=== PATIENT | female | born 1945 | race Caucasian/White ===

== ENCOUNTER 2016-11-25 12:14 | Outpatient (CLI) | payer MEDICARE, BC ==
[2016-03-24 13:08] VITALS: BMI 24.3
[~2016-11-25 12:14] MED LIST: CALTRATE 600 M600 M1 PO; EFFEXOR37.5 MG PO; ESTRACE1 MG PO; FISH OIL 1,2001 CAP PO; L-ARGININE500 MG PO; LUTEIN20 MG PO; METAMUCIL FIB1 WAFER PO; NORVASC5 MG PO; PRAVACHOL40 MG PO; VITAMIN D31000 UNIT PO; ZESTORETIC 20-1 EACH PO
== END 2016-11-25 16:38 ==
LOC: D.MAMMO 12:14
DX: Z12.31 Encounter for screening mammogram for malignant neoplasm of breast (principal)

== ENCOUNTER 2017-05-12 16:47 | Inpatient (IN) | payer MEDICARE, BC ==
[~2017-05-12] VITALS: Ht 172.7 cm; Wt 74.5 kg
--- NOTE | 2017-05-12 16:45 | NUR ---
PT DIRECT ADMIT TO FLOOR. ASSESSMENT COMPLETE AT THIS TIME. AT BEDSIDE.
[2017-05-12 17:10] VITALS: BP 151/86; Ht 172.7 cm; Wt 74.5 kg
[2017-05-12 17:50] LABS: BASOPHILS 0.5 % (0-2); EOSINOPHILS 1.9 % (0-7); HEMATOCRIT 40.7 % (36.0-48.0); HEMOGLOBIN 13.6 g/dL (12-16); IMMATURE GRANULOCYTES 0.2 % (0-5); LYMPHOCYTES 18.2 % (15-50); MCH 32.3 pg (26.0-34.0); MCHC 33.4 g/dL (31.0-37.0); MCV 96.7 fL (80.0-100.0); MEAN PLATELET VOLUME 9.2 fL (7.4-10.4); NEUTROPHILS 73.2 % (40-80); PLATELET COUNT 198 10x3/uL (130-400); RBC 4.21 10x6/uL (4.00-5.40); RDW 13.2 % (11.5-14.5); WBC 8.3 10x3/uL (4.8-10.8)
[2017-05-12 17:56] LABS: INR 0.98 (0.85-1.17); PROTIME 12.6 SECONDS (11.6-15.0)
[2017-05-12 18:04] LABS: ALBUMIN 3.9 g/dL (3.4-5.0); ALKALINE PHOSPHATASE 93 U/L (46-116); ALT (SGPT) 40 U/L (10-68); BILIRUBIN - TOTAL 0.42 mg/dL (0.2-1.3); CALC OSMOLALITY 279 mosm/kg (275-300); CALCIUM 9.5 mg/dL (8.5-10.1); CARBON DIOXIDE 27.9 mmol/L (21.0-32.0); CHLORIDE - SERUM 104 mmol/L (98-107); CREATININE - SERUM 0.7 mg/dL (0.6-1.3); GLUCOSE 86 mg/dL (74-106); POTASSIUM - SERUM 4.2 mmol/L (3.5-5.1); PROTEIN - SERUM 7.2 g/dL (6.4-8.2); SODIUM 140 mmol/L (136-145); UREA NITROGEN 18 mg/dL (7-18); eGFR NON AFRICAN AMERICAN 87 mL/min (90-120)
[2017-05-12 20:00] VITALS: BP 142/74
[2017-05-12 21:54] LABS: APPEARANCE CLEAR (CLEAR); BILIRUBIN NEGATIVE (NEGATIVE); COLOR STRAW (YELLOW); GLUCOSE NEGATIVE (NEGATIVE); KETONE NEGATIVE (NEGATIVE); NITRITE NEGATIVE (NEGATIVE); PROTEIN NEGATIVE (NEGATIVE); UROBILINOGEN NORMAL (NORMAL)
[2017-05-12 21:57] LABS: WHITE CELLS - URINE 0-5 /hpf (0-5)
[2017-05-12 21:58] LABS: BACTERIA FEW /hpf (NONE SEEN); EPITHELIAL CELLS OCC /hpf (0-5)
[2017-05-13] VITALS: BP 140/65
[2017-05-13 04:00] VITALS: BP 125/65
[2017-05-13 04:09] LABS: BASOPHILS 0.3 % (0-2); EOSINOPHILS 2.9 % (0-7); HEMATOCRIT 38.2 % (36.0-48.0); HEMOGLOBIN 12.5 g/dL (12-16); IMMATURE GRANULOCYTES 0.3 % (0-5); LYMPHOCYTES 27.1 % (15-50); MCH 31.9 pg (26.0-34.0); MCHC 32.7 g/dL (31.0-37.0); MCV 97.4 fL (80.0-100.0); MEAN PLATELET VOLUME 10.1 fL (7.4-10.4); MONOCYTES 5.9 % (2-11); NEUTROPHILS 63.5 % (40-80); PLATELET COUNT 186 10x3/uL (130-400); RBC 3.92 10x6/uL (4.00-5.40); RDW 13.2 % (11.5-14.5); WBC 6.3 10x3/uL (4.8-10.8)
[2017-05-13 04:24] LABS: CALC OSMOLALITY 282 mosm/kg (275-300); CALCIUM 8.6 mg/dL (8.5-10.1); CARBON DIOXIDE 27.2 mmol/L (21.0-32.0); CHLORIDE - SERUM 107 mmol/L (98-107); CREATININE - SERUM 0.8 mg/dL (0.6-1.3); GLUCOSE 119 mg/dL (74-106); POTASSIUM - SERUM 3.8 mmol/L (3.5-5.1); SODIUM 141 mmol/L (136-145); UREA NITROGEN 15 mg/dL (7-18); eGFR NON AFRICAN AMERICAN 75 mL/min (90-120)
--- NOTE | 2017-05-13 07:18 | NUR ---
REPORT RECEIVED FROM CERTIFIED HEARING INSTRUMENT DISPENSER NURSE. CALL LIGHT IN REACH.
[2017-05-13 08:55] VITALS: BP 116/60
--- NOTE | 2017-05-13 08:58 | NUR ---
ASSESSMENT COMPLETED. PREOP MEDS ADMINISTERED. CONSENT FORMS SIGNED AND WITNESSED. CALL LIGHT IN REACH. WILL CONTINUE WITH PLAN OF CARE.
--- NOTE | 2017-05-13 10:58 | NUR ---
TO OR VIA BED.
--- NOTE | 2017-05-13 12:30 | NUR ---
STILL IN OR AT THIS TIME.
--- NOTE | 2017-05-13 14:50 | NUR ---
NOT BACK FROM SURGERY AT THIS TIME.
[2017-05-13 16:17] VITALS: BP 109/83
--- NOTE | 2017-05-13 16:17 | NUR ---
RECEIVED BACK TO ROOM FROM RECOVERY ROOM. O2 @ 2L PER NC. BED ALARM ON. SCD TO RLE AND AMARI HOSE TO LLE. IN ROOM. CALL LIGHT IN REACH. WILL CONTINUE WITH PLAN OF CARE.
--- NOTE | 2017-05-13 18:41 | NUR ---
NO CHANGES IN INITIAL ASSESSMENT. SCD TO RLE. AMARI HOSE TO LLE. BED ALARM ON. AT BEDSIDE. CALL LIGHT IN REACH. WILL CONTINUE WITH PLAN OF CARE.
--- NOTE | 2017-05-13 19:15 | NUR ---
RECEIVED CARE FROM DAY NURSE. LYING IN LOW FOWLERS POSITION. REPORTS NO NEEDS AT THIS TIME. CALL LIGHT AT SIDE. IV INFUSING TO PATENT LEFT FA PER ORDER.
--- NOTE | 2017-05-13 19:15 | NUR ---
RECEIVED CARE FROM DAY NURSE. PT LYING IN BED IN LOW FOWLERS POSITION. EYES CLOSED. RESP EVEN AND UNLABORED. COMPANY AT SIDE. IV INFUSING TO LEFT FA PATENT AND INFUSING PER ORDER.
[2017-05-13 20:00] VITALS: BP 102/63
--- NOTE | 2017-05-13 23:31 | NUR ---
PATIENT IS AWAKE, ALERT AND ORIENTED. FABIOLA GOMEZ IN ROOM TALKING WITH PATIENT. RESPIRATIONS ARE EVEN AND UNLABORED ON ROOM AIR. NO SIGNS OF DISTRESS NOTED. BED IN LOWEST POSITION, CALL LIGHT IN REACH. BED RAILS UP X'S 2.
[2017-05-14] VITALS: BP 109/51
[2017-05-14 04:00] VITALS: BP 125/59
[2017-05-14 04:18] LABS: BASOPHILS 0.2 % (0-2); EOSINOPHILS 0.1 % (0-7); HEMATOCRIT 36.5 % (36.0-48.0); IMMATURE GRANULOCYTES 0.3 % (0-5); LYMPHOCYTES 7.1 % (15-50); MCH 31.9 pg (26.0-34.0); MCHC 32.9 g/dL (31.0-37.0); MCV 97.1 fL (80.0-100.0); MEAN PLATELET VOLUME 10.2 fL (7.4-10.4); MONOCYTES 6.9 % (2-11); NEUTROPHILS 85.4 % (40-80); PLATELET COUNT 201 10x3/uL (130-400); RBC 3.76 10x6/uL (4.00-5.40); RDW 13.6 % (11.5-14.5)
[2017-05-14 04:19] LABS: WBC 11.7 10x3/uL (4.8-10.8)
[2017-05-14 04:43] LABS: ALBUMIN 3.1 g/dL (3.4-5.0); ANION GAP 14.4 mmol/L (8-16); BILIRUBIN - TOTAL 0.6 mg/dL (0.2-1.3); CALCIUM 8.4 mg/dL (8.5-10.1); CARBON DIOXIDE 24.9 mmol/L (21.0-32.0); POTASSIUM - SERUM 4.3 mmol/L (3.5-5.1); PROTEIN - SERUM 5.6 g/dL (6.4-8.2)
[2017-05-14 04:48] LABS: CREATININE - SERUM 1.2 mg/dL (0.6-1.3)
--- NOTE | 2017-05-14 05:26 | NUR ---
SCANT URINE OUTPUT THROUGHOUT SHIFT. IN AND OUT CATH PREFORMED USING STERILE TECHNIQUE. REMOVAL OF 500ML YELLOW CLEAR URINE REMOVED.
--- NOTE | 2017-05-14 07:15 | NUR ---
REPORT RECEIVED FROM CLINICAL DATA ASSOCIATE NURSE. CALL LIGHT IN REACH.
--- NOTE | 2017-05-14 07:47 | OP ---
PATIENT NAME: VICENTA CHOUDHURY MEDICAL RECORD: [id number] :45 LOCATION:D[id number] ADMISSION DATE:05/12/17 SURGEON: ROMEO GALICIA DO DATE OF OPERATION: 05/13/2017 PROCEDURE PERFORMED: Left total hip arthroplasty. PREOPERATIVE DIAGNOSIS: Displaced left femoral neck fracture. POSTOPERATIVE DIAGNOSIS: Displaced left femoral neck fracture. INDICATIONS: Ms. Choudhury is a 71-year-old female that fell a couple of weeks ago and had some left hip pain, was limping, thought she has pulled a muscle. She finally went to the doctor and was having more difficulty weightbearing, had an x-ray, and was seen to have a left femoral neck fracture that had displaced. Upon discovering that she was direct admit to the hospital last night, I was consulted to talk to her. We discussed the options and she decided that a total hip is what we would do and she was informed of the risks and benefits of the procedure and consented for the procedure. SURGEON: Romeo Galicia DO COMPLICATIONS: None. ESTIMATED BLOOD LOSS: 100 mL DESCRIPTION OF PROCEDURE: The patient was given a block in the preoperative area by anesthesia and taken to the operative suite, laid in supine position, given general anesthetic and intubated, given a gram of vancomycin for preoperative antibiotics due to her PENICILLIN ALLERGY. Once this was done, a timeout was performed and everyone was in agreement of correct side, site, and patient. The left hip was prepared. The left foot was wrapped and AMARI hose stocking was placed and Webril and then Coban over the foot and was placed Unna boot. An anchor was placed on top of the foot and the boot was cinched down. Once this was done, Coban was placed on top of the boot to double secure and make sure the foot would not slip. After this, the patient was moved over to the table and then prepped and draped as described in sterile fashion. After the time-out, the incision commenced the anterior approach down to the tensor fascia syeda fascia. This fascia was incised and taken anterior, the muscle belly was taken posteriorly, then dissected down to the rectus muscle. This fascia was excised and then the Mike retractor was then placed in a more vertical position and the tensor fascia syeda was taken laterally and the rectus medially. The careful dissection was made down to the ascending branch of lateral femoral circumflex artery. This was tied off and coagulated with Aquamantys as well as with the plasma knife and careful dissection was made down to the hip capsule. Capsulotomy was performed and tagged. The femoral neck was then recut for a cut better suited for the total hip arthroplasty. The femoral head and neck were then removed. The Charnley retractor was then place. Once this was done, retractors were placed around the acetabulum. The labrum was taken off anteriorly and posteriorly and the pulvinar was removed and any bleeders were coagulated at that time with Aquamantys. We then began reaming, first medialized, and then we started with the 46 and then up to 50. The 50 implant was put in place at that time. After this was done, the attention was then drawn to the femur. A bone hook was seen, the femur was moved very well and easily, and the leg was brought into more external rotation and extended and OPERATIVE REPORT [id number] VICENTA CHOUDHURY abducted as the femur presented well in the incision site. A retractor was then used on the medial side, which is the posterior side of the femoral neck as well as over the greater trochanter to expose the canal. A cookie cutter was used to get in the canal and then the canal finder was used to get into the canal. We broached up to a 4 that was then trialed and we trialed to a neutral head and neck with standard offset. This was confirmed under x-ray and seen to be in good position. We then decided to do a collared press fit on the stem with Medacta. This was put in and the dual mobility head was put into place and malleted onto the stem and then the hip was reduced. Once this was done, thorough irrigation was done of all the wound. X-ray was taken and this was seen to be in very good position. There were no fractures seen in the distal femur as we checked. The capsule was then closed with a #2 Ethibond in a single jadatb-ey-mscij stitch and then Cori was put in the wound and then the tensor fascia syeda fascia was closed first with a imdsbt-bb-hgdqg stitch of 0 Vicryl and then running locking stitch of 0 Vicryl over the whole fascia. We then used the rest of the Cori on top of that and the skin was closed with 2-0 Vicryl in inverted interrupted fashion. Prineo Dermabond glue was used on the skin to close the skin. Telfa and Tegaderm were then placed over the wound and the patient was awakened and taken to recovery in stable condition. TRANSINT:[id number] Voice Confirmation ID: [id number] DOCUMENT ID: [id number] ROMEO GALICIA DO at 0747 CC: [id number] DICTATION DATE: 05/13/17 1458 COOPERAGE SHOP SUPERVISOR: 05/13/17 1644 ADM IN [facility] [address] [id number]
--- NOTE | 2017-05-14 08:12 | NUR ---
ASSESSMENT COMPLETED. TORADOL SIVP WITH AM MEDS EXCEPT FOR BP MEDS. SCD APPLIED TO LLE ALSO. BED ALARM ON. FRESH ICE PACK APPLIED TO LLE. CALL LIGHT IN REACH. WILL CONTINUE WITH PLAN OF CARE.
[2017-05-14 09:13] VITALS: BP 130/58
--- NOTE | 2017-05-14 09:30 | NUR ---
TO CHAIR PER PT. SCDs OFF AT THIS TIME. CALL LIGHT IN REACH.
--- NOTE | 2017-05-14 11:12 | NUR ---
SITTING UP IN CHAIR AT BEDSE. REQUESTED TO GO BACK TO BED NOW. DRESSING TO LEFT HIP DRY AND INTACT. PT HERE TO ASSIST TO BED.
--- NOTE | 2017-05-14 11:19 | NUR ---
BACK IN BED PER PT. TOLERATED WELL BUT NOW REQUESTING PAIN MED. OXY IR 5 MG PO. VANC IVPB. ICE PACK REFILLED AND PLACED TO LEFT HIP. SCDs BACK ON. BED ALARM ON. CALL LIGHT IN REACH.
--- NOTE | 2017-05-14 11:46 | NUR ---
REHAB PRESCREENING Rehab referral received. We will continue to follow this patient for progress. Thank you for this referral! Eufemia Bal, WOOD WEB WEAVING MACHINE OPERATOR Rehab Football Pad Repairer
--- NOTE | 2017-05-14 13:06 | NUR ---
LATE ENTRY-1000 CM RECEIVED MD ORDER FROM DR HENDERSON REQUESTING AN ACUTE REHAB CONSULT. CM SPOKE WITH TORREY , THE [facility] [place] [place] REHAB SCREENER FOR THE WEEKEND, TO ADVISE OF ORDER. CM HAD NOTED PATIENT DOES NOT HAVE A PHYSICAL THERAPY OR OT ORDER AT THIS TIME. TORREY WILL FOLLOW. POD #1. PRESENT PT ORDER IS FOR OVERHEAD FRAME AND TRAPEZE. DISCUSSED W/ PRIMARY NURSE.
[2017-05-14 13:16] VITALS: BP 130/56
--- NOTE | 2017-05-14 13:47 | NUR ---
IN BED WITH EYES CLOSED. RESP EVEN AND UNLABORED. CALL LIGHT IN REACH. BED ALARM ON.
--- NOTE | 2017-05-14 14:38 | NUR ---
SPOKE WITH PHYSICAL THERAPIST, MELVIN. HE HAD SPOKEN WITH DR GALICIA THIS AM REGARDING PHYSICAL THERAPY. PATIENT WAS EVALUATED TODAY. WILL CONTINUE WITH THERAPY.
[2017-05-14 15:53] VITALS: BP 103/58
--- NOTE | 2017-05-14 15:59 | NUR ---
INCENTIVE SPIROMETER GIVEN TO PATIENT AND EXPLAINED USE WITH RETURN DEMONSTRATION.
--- NOTE | 2017-05-14 16:20 | NUR ---
VOIDED 50 CC ON BEDPAN. WILL ASSIST TO BSC AFTER DINNER TO SEE IF SHE CAN GO. IF NOT, WILL I&O CATH PATIENT.
--- NOTE | 2017-05-14 18:15 | NUR ---
CM WENT TO VISIT WITH THE PATIENT THIS PM. SHE STATES SHE IS STILL A LITTLE CONFUSED WITH TIME. SHE HAS BEEN OOB TO BATHROOM. IS EXPERIENCING PAIN POST ACTIVITY. HAS HAD PAIN MANGEMENT ISSUES THIS POD #1. WAS SEEN BY PHYSICAL THERAPY EARLIER TODAY. THEN OOB TO COMMODE THIS PM. SHE IS NOT CERTAIN SHE WANTS ACUTE REHAB. CM WILL REVISIT IN THE AM TO ASSESS AND DISCUSS DISCHARGE PLANS. WILL ALSO REVIEW IMM. MIRNA SPOKE WITH THE PRIMARY NURSE, ROXY, REGARDING PATIENT'S COMPLAINT OF PAIN.
--- NOTE | 2017-05-14 18:16 | NUR ---
TORADOL IVP PER C/O PAIN OF 4 AFTER GETTING UP TO BSC. ONLY VOIDED 50 CC ON BSC. I&O USING STERILE TECHNIQUE PERFORMED WITH 600 CC URINE RETURN. NO OTHER CHANGES IN INITIAL ASSESSMENT. SCDs TO BLE. AMARI HOSE TO LLE. BED ALARM ON. CALL LIGHT IN REACH. WILL CONTINUE WITH PLAN OF CARE.
[2017-05-14 20:56] VITALS: BP 133/49
[2017-05-15] VITALS (7 sets, daily range): BP systolic 114–140; BP diastolic 47–59
[2017-05-15 04:46] LABS: BASOPHILS 0.1 % (0-2); EOSINOPHILS 0.6 % (0-7); HEMATOCRIT 29.4 % (36.0-48.0); HEMOGLOBIN 9.9 g/dL (12-16); IMMATURE GRANULOCYTES 0.1 % (0-5); MCHC 33.7 g/dL (31.0-37.0); MEAN PLATELET VOLUME 10.3 fL (7.4-10.4); MONOCYTES 8.9 % (2-11); NEUTROPHILS 78.3 % (40-80); RBC 3.09 10x6/uL (4.00-5.40); RDW 13.5 % (11.5-14.5)
[2017-05-15 04:47] LABS: MCV 95.1 fL (80.0-100.0); PLATELET COUNT 155 10x3/uL (130-400); WBC 7.7 10x3/uL (4.8-10.8)
--- NOTE | 2017-05-15 04:52 | NUR ---
ASSESSED, PT IS ASLEEP WITH EASY RESPIRATIONS AND NO DISTRESS NOTED. THE BED IS LOW, RAILS UP X'S 2 WITH THE CALL LIGHT AT HAND/
[2017-05-15 05:19] LABS: ALBUMIN 2.5 g/dL (3.4-5.0); BILIRUBIN - TOTAL 0.6 mg/dL (0.2-1.3); CALCIUM 8.3 mg/dL (8.5-10.1); CARBON DIOXIDE 24.8 mmol/L (21.0-32.0); CREATININE - SERUM 0.9 mg/dL (0.6-1.3); PROTEIN - SERUM 5.3 g/dL (6.4-8.2)
[2017-05-15 05:22] LABS: ANION GAP 11.6 mmol/L (8-16); POTASSIUM - SERUM 3.4 mmol/L (3.5-5.1)
--- NOTE | 2017-05-15 07:26 | NUR ---
REPORT RECEIVED FROM DRAWBENCH OPERATOR HELPER NURSE. CALL LIGHT IN REACH.
--- NOTE | 2017-05-15 09:39 | NUR ---
ASSESSMENT COMPLETED. AM MEDS ADMINISTERED. SCDs TO BLE. AMARI HOSE TO LLE. BED ALARM ON. CALL LIGHT IN REACH. WILL CONTINUE WITH PLAN OF CARE.
--- NOTE | 2017-05-15 11:20 | NUR ---
ASSISTED TO BSC. HAD LARGE BM X1. BACK TO BED. ALARM ON.
--- NOTE | 2017-05-15 13:20 | NUR ---
PT AMBULATING PATIENT FOR THE 2ND TIME TODAY. TOLERATING WELL. ALSO BY SIDE.
--- NOTE | 2017-05-15 13:45 | NUR ---
OXY IR PO PER F/O PAIN OF 4. CALL LIGHT IN REACH.
--- NOTE | 2017-05-15 14:05 | NUR ---
DR. GALICIA IN ROOM TO SEE PATIENT AGAIN.
--- NOTE | 2017-05-15 14:06 | NUR ---
Is the patient Alert and Oriented? Yes 0 * How many steps to enter\exit or inside your home? none 0 * PCP DR BILLY 0 * Pharmacy [facility] IN PROCESS OF TRYING TO TRANSFER TO [facility] 0 * Preadmission Environment Home with Family 0 * ADLs Independent 0 * Equipment None 0 * Other Equipment HAS NO DME 0 * List name and contact numbers for known caregivers / representatives who currently or will assist patient after discharge: LYNSEY JUARES- [facility]- [phone] 0 * Community resources currently utilized None 0 * Please name any agencies selected above. N/A 0 * Additional services required to return to the preadmission environment? Yes 0 * Can the patient safely return to the preadmission environment? Yes 0 * Has this patient been hospitalized within the prior 30 days at any hospital? No 0
--- NOTE | 2017-05-15 16:15 | NUR ---
NO NEEDS VOICED AT THIS TIME. CALL LIGHT IN REACH.
--- NOTE | 2017-05-15 18:32 | NUR ---
NO CHANGES IN INITIAL ASSESSMENT. SCDs TO BLE. AMARI HOSE TO LLE. BED ALARM ON. CALL LIGHT IN REACH. WILL CONTINUE WITH PLAN OF CARE.
--- NOTE | 2017-05-15 19:10 | NUR ---
PT IN BED WITH AT BEDSIDE. NO CONCERNS MADE KNOWN. PT IN PLEASANT MOOD. NOTES DISCOMFORT TO LEFT LOWER EXTREMITY 3/10 AND FEELING INCREASING AND REQUEST PAIN MEDICATION WITH EVENING MEDICATIONS. CALL LIGHT IN REACH. WILL CONTINUE TO OBSERVE.
--- NOTE | 2017-05-15 21:48 | NUR ---
PT IN BED WITH EYES OPEN WATCHING TV. NO CONCERNS OR COMPLAINTS AT THIS TIME. WILL CONTINUE TO OBSERVE. CALL LIGHT IN REACH.
--- NOTE | 2017-05-16 00:29 | NUR ---
PT IN BED WITH EYES CLOSED AND CHEST RISING. NO S/S OF DISTRESS NOTED AT THIS TIME. CALL LIGHT IN REACH.
--- NOTE | 2017-05-16 00:30 | NUR ---
PT IN BED WITH EYES CLOSED AND CHEST RISING. NO S/S OF DISTRESS NOTED. CALL LIGHT IN REACH. WILL CONTINUE TO OBSERVE.
--- NOTE | 2017-05-16 02:48 | NUR ---
PT IN BED WITH EYES CLOSED AND CHEST RISING. NO S/S OF DISTRESS. NO CONCERNS AT THIS TIME. CALL LIGHT IN REACH. WILL CONTINUE TO OBSERVE.
[2017-05-16 03:23] LABS: BASOPHILS 0.1 % (0-2); EOSINOPHILS 0.9 % (0-7); HEMATOCRIT 28.5 % (36.0-48.0); HEMOGLOBIN 9.5 g/dL (12-16); IMMATURE GRANULOCYTES 0.1 % (0-5); LYMPHOCYTES 14.5 % (15-50); MCH 31.9 pg (26.0-34.0); MCHC 33.3 g/dL (31.0-37.0); MCV 95.6 fL (80.0-100.0); MEAN PLATELET VOLUME 10.5 fL (7.4-10.4); MONOCYTES 9.5 % (2-11); NEUTROPHILS 74.9 % (40-80); PLATELET COUNT 169 10x3/uL (130-400); RBC 2.98 10x6/uL (4.00-5.40); RDW 13.5 % (11.5-14.5); WBC 7.7 10x3/uL (4.8-10.8)
[2017-05-16 03:49] LABS: ALBUMIN 2.3 g/dL (3.4-5.0); ALKALINE PHOSPHATASE 59 U/L (46-116); BILIRUBIN - TOTAL 0.47 mg/dL (0.2-1.3); CALCIUM 8.4 mg/dL (8.5-10.1); CARBON DIOXIDE 25.4 mmol/L (21.0-32.0); CHLORIDE - SERUM 107 mmol/L (98-107); GLUCOSE 118 mg/dL (74-106); PROTEIN - SERUM 5.4 g/dL (6.4-8.2); SODIUM 140 mmol/L (136-145)
[2017-05-16 03:51] LABS: ALT (SGPT) 21 U/L (10-68); CALC OSMOLALITY 277 mosm/kg (275-300); CREATININE - SERUM 0.6 mg/dL (0.6-1.3); UREA NITROGEN 8 mg/dL (7-18); eGFR NON AFRICAN AMERICAN > 90 mL/min (90-120)
[2017-05-16 03:59] VITALS: BP 104/49
--- NOTE | 2017-05-16 07:19 | NUR ---
REPORT RECEIVED FROM ANESTHETIC ASSISTANT NURSE. CALL LIGHT IN REACH.
--- NOTE | 2017-05-16 07:22 | NUR ---
REPORT RECEIVED FROM BUILDING CONSTRUCTION CONTRACTOR NURSE. CALL LIGHT IN REACH.
--- NOTE | 2017-05-16 07:40 | NUR ---
ASSESSMENT COMPLETED. OXY IR 5 MG PO WITH AM MEDS ADMINISTERED. AMARI HOSE TO LLE AND SCDs TO BLE. BED ALARM ON. CALL LIGHT IN REACH. WILL CONTINUE WITH PLAN OF CARE.
[2017-05-16] MEDS ORDERED: OXYCODONE HCL5 MG PO (08:07)
[2017-05-16] MEDS ORDERED: ELIQUIS2.5 MG PO (08:07)
[2017-05-16 08:52] VITALS: BP 140/61
--- NOTE | 2017-05-16 08:52 | NUR ---
BP MEDS ADMINISTERED. STATES PAIN IS NOW AT A 0. CALL LIGHT IN REACH. BED ALARM ON.
--- NOTE | 2017-05-16 09:58 | NUR ---
PATIENT DISCHARGING TODAY, OP PT SET UP FOR TueMay AT 11:45 AM. WALKER AND BSC ORDERED FROM [facility] AND WILL BE DELIVERED TO HOSPITAL. CM WILL CONTINUE TO FOLLOW AND ASSIST NEEDED WITH DSICHARGE PLANNING NEEDS.
--- NOTE | 2017-05-16 10:17 | NUR ---
Rehab Note- Spoke to Chidi CM. The patient has progressed well enough to be discharged home to do outpatient therapy. Thank you for this referral! Sylvia Ortega RN Clinical Liaison, [facility]
--- NOTE | 2017-05-16 10:58 | NUR ---
HAS AMBULATED IN HALLWAY WITH PHYSICAL THERAPY. TOLERATED WELL. IN CHAIR AT THIS TIME. CALL LIGHT IN REACH.
[2017-05-16] MEDS ORDERED: POTASSIUM CHLO10 ME1 PO (11:48)
--- NOTE | 2017-05-16 12:12 | NUR ---
SPOKE WITH DR. HENDERSON ABOUT POTASSIUM LEVEL. NEW ORDER FOR ELECTROLYTE PROTOCOL. STATES HE WILL WRITE DC ORDERS AROUND 1PM. INFORMED PATIENT ABOUT NEW ORDERS AND WHAT DR. HENDERSON SAID. ALSO EXPLAINED TO HER THAT IT WOULD PROBABLY AROUND 2-3 BEFORE HER PAPERWORD IS COMPLETED AND SHE WOULD BE ABLE TO GO HOME. VERBALIZED UNDERSTANDING.
[2017-05-16 12:44] VITALS: BP 139/67
--- NOTE | 2017-05-16 13:36 | NUR ---
Patient's insurance will not pay for HH and OP PT, so patient will go to Dr office and have her Potassium checked. explained to patient and she stated that it would not be a problem to do that.
--- NOTE | 2017-05-16 13:46 | NUR ---
IV DC'D WITH TIP INTACT.
--- NOTE | 2017-05-16 14:41 | NUR ---
DC INSTRUCTIONS EXPLAINED TO PATIENT AND . RXs FOR OXY IR AND ELIQUIS HANDED TO PATIENT. DRSG CHANGED AND EXTRA DRSG SENT WITH PATIENT. DC'D TO VEHICLE VIA WC WITH .
--- NOTE | 2017-05-23 07:26 | HP ---
PATIENT: VICENTA JUARES MEDICAL RECORD: [id number] ACCOUNT: [id number] LOCATION:D.[id number] : 45 ADMISSION DATE: 05/12/17 HISTORY AND PHYSICAL EXAMINATION DATE OF ADMISSION: 05/12/2017 CHIEF COMPLAINT: Left hip pain. HISTORY OF PRESENT ILLNESS: The patient is a 71-year-old female who states approximately 2 weeks ago while taking her dog outside, she slipped landing on her left hip. She is complaining of intermittent pain since that time with difficulty ambulating. PAST MEDICAL HISTORY: Significant that she has had a history of hyperlipidemia, hypertension, plantar fasciitis, granuloma annulare, prior history of smoking, Achilles tendinitis, psoriasis, hypokalemia. She has had a history of depression, osteoporosis. PAST SURGICAL HISTORY: She has had a tubal ligation and hysterectomy. FAMILY HISTORY: Father had hypertension and of CHF. Mother had arteriosclerotic heart disease. ALLERGIES: PENICILLIN. MEDICATIONS: Include amlodipine 5 mg 1 p.o. daily, calcium 600 one p.o. daily, Claritin 10 mg once a day, clobetasol 0.05% topical applying b.i.d., fish oil 1200 mg daily, lisinopril 20/12.5 once a day, Lutein 20 mg once a day, Crestor 10 mg once a day, triamcinolone acetonide 0.1% apply b.i.d., Effexor 37.5 once a day, vitamin D 1000 international units daily. HABITS: The patient has been a prior smoker. She is a moderate alcohol ingester. REVIEW OF SYSTEMS: CONSTITUTIONAL: She denies any headaches, seizures, or syncope. HEENT: She denies change in visual or auditory acuity. PULMONARY: She denies any shortness of breath, cough or congestion, history of TB, asthma, or bronchitis. CARDIOVASCULAR: No cardiovascular disease noted. GASTROINTESTINAL: No chronic nausea, vomiting, melena, or hematochezia. GENITOURINARY: No urgency, frequency, or dysuria. MUSCULOSKELETAL: The patient does report having chronic ongoing pain in the left hip. PHYSICAL EXAMINATION: VITAL SIGNS: Today, her weight is 164. Her blood pressure is 166/74, pulse was slightly elevated at 104, respirations 14, and temperature 96.6. HEENT: Head is normocephalic. No lesions. Ears: TMs clear. Eyes: Pupils equal, round and reactive to light. Her extraocular movements are intact. Nasal cavity, oral cavity, oropharynx clear. NECK: Supple. There is no adenopathy. HEART: Has a regular rate and rhythm without any murmurs, gallops, or rubs. LUNGS: Clear. HISTORY AND PHYSICAL [id number] RAY,VICENTA SKAGSG ABDOMEN: Soft and nontender. EXTREMITIES: The patient does have pain with bearing weight on the left leg. She has pain with internal and external rotation, flexion, and extension. DIAGNOSTIC DATA: X-ray of the left hip showed an impacted left femoral neck fracture. ASSESSMENT: Status post fall with impacted left femoral neck fracture, hypertension, depression, history of psoriasis. PLAN: The patient will be admitted. We will consult Dr. Fritz, orthopedist, for open reduction internal fixation. The patient will be placed on Dilaudid for pain. She will have IV hydration, Zofran for nausea and vomiting, continue to follow. TRANSINT:[id number] Voice Confirmation ID: [id number] DOCUMENT ID: [id number] DOLORES BILLY MD at 0726 CC: [id number] DICTATION DATE: 05/12/17 173 MOBILE MECHANIC: 05/12/17 1849 DIS IN 05/16/[id number] [place] [address]
== END 2017-05-16 14:41 | disposition home or self-care (01) | DRG 470 ==
LOC: D.MS 16:47
PROVIDERS: Family Medicine; Orthopaedic Surgery; ADMIT Family Medicine
PROC: 0SRB0JZ Replacement of Left Hip Joint with Synthetic Substitute, Open Approach (ICD-10-PCS; principal; 2017-05-13 09:45)
DX: S72.002A Fracture of unspecified part of neck of left femur, initial encounter for closed fracture (principal); W01.0XXA Fall on same level from slipping, tripping and stumbling without subsequent striking against object, initial encounter; F32.9 Major depressive disorder, single episode, unspecified; M81.0 Age-related osteoporosis without current pathological fracture; I10 Essential (primary) hypertension; E78.5 Hyperlipidemia, unspecified; Z87.891 Personal history of nicotine dependence

== ENCOUNTER → 2018-01-11 20:03 | Outpatient (CLI) | payer MEDICARE, BC ==
[2017-05-12 17:10] VITALS: BMI 24.9
[~2018-01-11 20:03] MED LIST changes: +ELIQUIS2.5 MG PO; +OXYCODONE HCL5 MG PO; +POTASSIUM CHLO10 ME1 PO
== END | disposition home or self-care (01) ==
LOC: D.MAMMO 11:45
DX: Z12.31 Encounter for screening mammogram for malignant neoplasm of breast (principal)

== ENCOUNTER → 2018-02-16 18:50 | Outpatient (CLI) | payer MEDICARE, BC ==
[2017-05-12 17:10] VITALS: BMI 24.9
== END | disposition home or self-care (01) ==
LOC: D.MAMMO 13:30
DX: R92.8 Other abnormal and inconclusive findings on diagnostic imaging of breast (principal)

== ENCOUNTER → 2019-03-07 11:52 | Outpatient (CLI) | payer MEDICARE, BC ==
[2017-05-12 17:10] VITALS: BMI 24.9
== END ==
LOC: D.MAMMO 11:45
PROVIDERS: ATTEND Family Medicine
DX: Z12.31 Encounter for screening mammogram for malignant neoplasm of breast (principal)